=== PATIENT | male | born 1960 | race Caucasian/White ===

== ENCOUNTER 2021-01-06 01:14 | Emergency (ER) | payer OTHER ==
[~2021-01-06] VITALS: Ht 188 cm; Wt 97.5 kg
[2021-01-06] MEDS ORDERED: HYDROcodone-ACET 7.5/325MG TAB PO ONE (01:45)
[2021-01-06] MEDS ORDERED: MORPHINE SULFATE 4 MG/ML SYR/VIAL IV ONE (03:00)
[2021-01-06] MEDS ORDERED: MORPHINE SULF INJ 2 MG/ML SYRINGE 1ML IV ONE (03:00)
[2021-01-06] MEDS ORDERED: ONDANSETRON HCL 4 MG/2 ML VIAL IV ONE (05:45)
[2021-01-06] MEDS ORDERED: fentaNYL CITRATE 100 MCG/2 ML VL IV ONE (05:45)
[2021-01-06 07:41] LABS: Basophils # (auto) 0.1 10 ^3/uL (0-0.2); Basophils % (auto) 0.9 % (0.0-2.0); Eosinophils # (auto) 0.4 10 ^3/uL (0-0.8); Eosinophils % (auto) 5.2 % (0.0-7.0); Hematocrit 34.5 % (41.0-53.0); Hemoglobin 11.9 g/dL (13.5-17.5); Lymphocytes % (auto) 28.3 % (10.0-50.0); Mean Corpuscular Hemoglobin 31.7 pg (28.0-32.0); Mean Corpuscular Hgb Conc. 34.3 g/dL (32.0-36.0); Mean Corpuscular Volume 92.4 fL (80.0-100.0); Monocytes # (auto) 0.6 10 ^3/uL (0-1.3); Monocytes % (auto) 8.6 % (0.0-12.0); Neutrophils # (auto) 4.1 10 ^3/uL (1.6-8.6); Nucleated Red Blood Cells % 0.1 %; Platelet Count (auto) 279 10^3/uL (140-450); Red Blood Cells 3.73 10^6/uL (4.5-5.90); Red Cell Distribution Width 14.1 % (11.8-14.3); White Blood Cell 7.1 10^3/uL (4.4-10.8)
[2021-01-06 07:55] LABS: BUN/Creatinine Ratio 21.8; Calcium 8.6 mg/dL (8.5-10.1); Potassium 3.7 mmol/L (3.5-5.1)
[2021-01-06 08:00] VITALS: BP 112/79
== END 2021-01-06 08:37 | disposition left against medical advice (07) ==
LOC: ER 01:17
DX: I82.411 Acute embolism and thrombosis of right femoral vein (principal); M66.0 Rupture of popliteal cyst; Z88.5 Allergy status to narcotic agent
CPT/HCPCS: 36415; 80048; 85025; 86850; 86900; 86901; 93005; 93970; 96374; 96375; 99285; J2270; J2405; J3010

== ENCOUNTER 2021-01-08 11:45 | Emergency (ER) | payer OTHER ==
[~2021-01-08] VITALS: Ht 188 cm; Wt 97.5 kg
[2021-01-08] MEDS ORDERED: MORPHINE SULFATE 4 MG/ML SYR/VIAL IV ONE ×2 (12:00→14:15)
[2021-01-08] MEDS ORDERED: ONDANSETRON HCL 4 MG/2 ML VIAL IV ONE (12:00)
[2021-01-08] MEDS ORDERED: ENOXAPARIN SOD 100 MG/1 ML SYRINGE SC ONE (12:15)
[2021-01-08] MEDS ORDERED: CLINDAMYCIN 600MG IV 50 ML IV ONE (15:30)
[2021-01-08 16:06] VITALS: BP 117/56
== END 2021-01-08 18:01 | disposition left against medical advice (07) ==
LOC: ER 11:45
DX: I82.401 Acute embolism and thrombosis of unspecified deep veins of right lower extremity (principal); L03.115 Cellulitis of right lower limb; E11.9 Type 2 diabetes mellitus without complications; I10 Essential (primary) hypertension; F17.210 Nicotine dependence, cigarettes, uncomplicated; F12.10 Cannabis abuse, uncomplicated; Z90.49 Acquired absence of other specified parts of digestive tract; Z88.6 Allergy status to analgesic agent
CPT/HCPCS: 96365; 96366; 96372; 96375; 96376; 99284; J1650; J2270; J2405; J3490